=== PATIENT | female | born 1935 | race Caucasian/White ===

== ENCOUNTER 2020-11-09 10:05 | Emergency (ER) | payer MEDICARE ==
--- NOTE | 2020-11-09 10:12 | PHYS DOC ---
Past Medical History Past Medical History: Anxiety, Hypertension Additional Past Medical Histor: Overflow incontinence, scoliosis, hemorrhoids, cystocele, ovarian cyst Past Medical History Limited secondary to cardiopulmonary arrest Past Surgical History: Hip Replacement (left) Additional Past Surgical Histo: Prosthetic heart valve Past Surgical History Limited secondary to cardiopulmonary arrest Social History Limited secondary to cardiopulmonary arrest General Adult EDM: Chief Complaint: Cardiopulmonary Arrest HPI: HPI: 85-year-old female presents via [facility] from [employer] with report of cardiopulmonary arrest. Patient is a DO NOT RESUSCITATE and was therefore allowed to pass peacefully. EMS reports they were called with patient's complaint of chest pain. There was concern for ST elevation on EMS leads and therefore a code STEMI was initially called. During transport, patient subsequently became unresponsive and without pulse. Patient was pronounced by EMS which was confirmed upon patient's arrival to the emergency department at 1005. History of present illness limited secondary to cardiopulmonary arrest with exp iration. Review of Systems: Review of Systems: Review of systems limited secondary to cardiopulmonary arrest with expiration Heart Score: C/O Chest Pain: N/A Physical Exam: PE: Constitutional: Elderly, pale, female HENT: Normocephalic, atraumatic Eyes: Pupils fixed and dilated, conjunctiva normal Neck: Atraumatic supple Lungs & Thorax: No spontaneous respirations, auscultation without breath sounds Cardiovascular: Absent heart sounds on auscultation, absent bilateral carotid pulse Abdomen: Soft, no distention Skin: Cool, dry, pallor Extremities: No deformity, no edema Neurologic: GCS 3, unresponsive EKG: EKG: [] Radiology/Procedures: Radiology/Procedures: [] Course & Med Decision Making: Course & Med Decision Making Patient presents via EMS status post cardiopulmonary arrest as a DO NOT RESUSCITATE. Patient confirmed on arrival at 1005. Discussed with patient's daughter, who acknowledges understanding and agreement. Parker Disclaimer: Parker Disclaimer: This electronic medical record was generated, in whole or in part, using a voice recognition dictation system. Departure Departure Impression: Primary Impression: Cardiopulmonary arrest Disposition: 20 Condition: ART POLK Nov 09, 2020 10:12
== END 2020-11-09 15:25 ==
LOC: ER 10:05
DX: I46.9 Cardiac arrest, cause unspecified (principal); F41.9 Anxiety disorder, unspecified; I10 Essential (primary) hypertension
CPT/HCPCS: 99285